=== PATIENT | male | born 1990 ===

== ENCOUNTER 2021-05-09 12:34 | Emergency (ER) | payer OTHER ==
[~2021-05-09] VITALS: Ht 170.2 cm; Wt 71.7 kg
== END 2021-05-09 14:55 | disposition home or self-care (01) ==
LOC: ER 12:34
DX: S61.412A Laceration without foreign body of left hand, initial encounter (principal); W26.8XXA Contact with other sharp object(s), not elsewhere classified, initial encounter; Y92.019 Unspecified place in single-family (private) house as the place of occurrence of the external cause